=== PATIENT | male | born 1985 | race Caucasian/White ===

== ENCOUNTER 2018-06-27 21:39 | Emergency (ER) | payer MEDICAID, OTHER ==
[2018-06-27 21:50] VITALS: BP 165/82
--- NOTE | 2018-06-27 22:37 | EDPHY ---
H & P Stated Complaint: RLQ abd pain started 2030 Time Seen by Provider: 06/27/18 22:25 HPI/ROS: Pain at 8:30 a.m., gone 15 min ago right inguinal hernia Chief Complaint: Abdominal pain HPI: 33-year-old male with a known right direct inguinal hernia, scheduled for repair on the of this month. The patient began having severe lower abdominal pain at 8:30 this evening. It was constant but waxing and waning. He became concerned about a complication from his hernia in presented for evaluation. He states that approximately 15 min ago he passed flatus and his pain has since completely resolved. He is currently without complaint. No nausea or vomiting. No fevers or chills. ROS: 10 systems were reviewed and were negative except those elements noted in the HPI. PMH: Direct inguinal hernia Social History: No smoking, no alcohol, no recreational drug use Family History: non-contributory Physical Exam: Gen: Awake, Alert, No Distress HEENT: Nose: no rhinorrhea Eyes: PERRLA, EOMI Mouth: Moist mucosa Neck: Supple, no JVD Chest: nontender, lungs clear to auscultation Heart: S1, S2 normal, no murmur Abd: Soft, non-tender, no guarding Back: no CVA tenderness, no midline tenderness Ext: no edema, non-tender Skin: no rash Neuro: CN II-XII intact, Sensation grossly intact, Strength 5/5 in bilateral upper and lower extremities - Personal History Current Tetanus/Diphtheria Vaccine: No Current Tetanus Diphtheria and Acellular Pertussis (TDAP): No - Medical/Surgical History Hx Asthma: No Hx Chronic Respiratory Disease: No Hx Diabetes: No Hx Cardiac Disease: No Hx Renal Disease: No Hx Cirrhosis: No Hx Alcoholism: No Hx HIV/AIDS: No Hx Splenectomy or Spleen Trauma: No Other PMH: denies - Social History Smoking Status: Current every day smoker Constitutional: Initial Vital Signs Temperature (C) 36.9 C 06/27/18 21:48 Heart Rate 87 06/27/18 21:48 Respiratory Rate 16 06/27/18 21:48 Blood Pressure 165/82 H 06/27/18 21:48 O2 Sat (%) 94 06/27/18 21:48 O2 Delivery Mode Room Air Allergies/Adverse Reactions: No Known Allergies Allergy (Unverified 06/27/18 21:50) Home Medications: Medication Instructions Recorded Chantix 06/27/18 Medical Decision Making ED Course/Re-evaluation: A 33-year-old male with a known inguinal hernia presenting with severe abdominal pain. Completely resolved after he passed flatus. He has a completely soft benign abdomen at this time. We have discussed the further evaluation at length. Patient is declining any further evaluation I think that this is appropriate. He will return for any concerns. He will otherwise follow up with his surgeon as scheduled. Departure - Departure Disposition: Home, Routine, Self-Care Clinical Impression: Abdominal pain Condition: Good Instructions: Acute Abdominal Pain (ED) Additional Instructions: Follow up with your surgeon as scheduled for your planned hernia repair. Return to the emergency department for worsening abdominal pain, fevers or chills, uncontrolled nausea vomiting, or any other concerns. Referrals: Hosea Clarke MD [Primary Care Provider] - As per Instructions
== END 2018-06-27 23:27 | disposition home or self-care (01) ==
DX: K40.90 Unilateral inguinal hernia, without obstruction or gangrene, not specified as recurrent (principal)

== ENCOUNTER 2018-07-07 08:29 | Day surgery (SDC) | payer MEDICAID, OTHER ==
[2018-07-07] MEDS ORDERED: ceFAZolin 2 GM/DEXTROSE 100 ML IV ONE (08:39)
[2018-07-07] MEDS ORDERED: LIDOCAINE 1% 2 ML INJ ID PRN (08:40)
[2018-07-07] MEDS ORDERED: LR 1,000 ML IV ONE ×2 (08:40→08:49)
[2018-07-07] MEDS ORDERED: MIDAZOLAM 2 MG/2 ML VIAL IVP ONE (10:01)
--- NOTE | 2018-07-07 10:01 | PDANEPAE ---
ANE History of Present Illness B laparoscopic IH ANE Past Medical History - Cardiovascular History Hx Hypertension: No Hx Arrhythmias: No Hx Chest Pain: No Hx Coronary Artery / Peripheral Vascular Disease: No Hx CHF / Valvular Disease: No Hx Palpitations: No - Pulmonary History Hx COPD: No Hx Asthma/Reactive Airway Disease: No Hx Recent Upper Respiratory Infection: No Hx Oxygen in Use at Home: No Hx Sleep Apnea: No Sleep Apnea Screening Result - Last Documented: Negative - Neurologic History Hx Cerebrovascular Accident: No Hx Seizures: No Hx Dementia: No - Endocrine History Hx Diabetes: No - Renal History Hx Renal Disorders: No Renal History Comment: HX OF HYDROCELE 05/2018 - Liver History Hx Hepatic Disorders: No - Neurological & Psychiatric Hx Hx Neurological and Psychiatric Disorders: No Neurological / Psychiatric History Comment: ADD - Cancer History Hx Cancer: No - Congenital Disorder History Hx Congenital Disorders: No - GI History Hx Gastrointestinal Disorders: No - Other Health History Other Health History: WEARS GLASSES - Chronic Pain History Chronic Pain: No - Surgical History Prior Surgeries: N/A ANE Review of Systems Review of systems is: negative Review of Systems: - Exercise capacity METS (RN): 4 METS ANE Patient History - Allergies Allergies/Adverse Reactions: morphine Allergy (Intermediate, Verified 07/07/18 09:18) Rash - Home Medications Home medications: home medication list seen and reviewed Home Medications: NK [No Known Home Meds] 07/03/18 [Last Taken Unknown] - NPO status NPO Since - Liquids (Date): 07/06/18 NPO Since - Solids (Date): 07/06/18 - Anes Hx Anes Hx: no prior problems - Smoking Hx Smoking Status: Current some day smoker - Family Anes Hx Family Anes Hx: none Family Hx Anesthesia Complications: NONE ANE Labs/Vital Signs - Vital Signs Vital Signs: reviewed preoperatively; see RN documention for details Blood Pressure: 142/96 Heart Rate: 87 Respiratory Rate: 16 O2 Sat (%): 93 Height: 187.96 cm Weight: 131.542 kg ANE Physical Exam - Airway Neck exam: FROM Mallampati Score: Class 2 Mouth exam: normal dental/mouth exam - Pulmonary Pulmonary: no respiratory distress - Cardiovascular Cardiovascular: regular rate and rhythym - ASA Status ASA Status: II ANE Anesthesia Plan Anesthesia Plan: general endotracheal anesthesia
--- NOTE | 2018-07-07 11:15 | PDHPUP ---
History & Physical Update H&P update statement: This history and physical update is based on an assessment of the patient which was completed after admission or registration (within 24 hours), but prior to the surgery/procedure. H&P update: H&P reviewed & patient examined, no change in patient's condition since H&P completed
[2018-07-07] MEDS ORDERED: SUGAMMADEX SODIUM 200 MG/2 ML VIAL IVP ONE (11:41)
[2018-07-07] MEDS ORDERED: MIDAZOLAM 2 MG/2 ML VIAL ONE (11:41)
[2018-07-07] MEDS ORDERED: PROPOFOL 200 MG/20 ML VIAL ONE (11:41)
[2018-07-07] MEDS ORDERED: ROCURONIUM 50 MG/5 ML VIAL ONE ×2 (11:41→12:49)
[2018-07-07] MEDS ORDERED: ONDANSETRON 4 MG/2 ML VIAL ONE (11:41)
[2018-07-07] MEDS ORDERED: fentaNYL 250 MCG/5 ML INJ ONE (11:41)
[2018-07-07] MEDS ORDERED: LIDOCAINE 2% 100 MG/5 ML SYR ONE (11:41)
[2018-07-07] MEDS ORDERED: BUPIVACAINE 0.5% 30 ML SDV ONE (11:41)
[2018-07-07] MEDS ORDERED: DEXAMETHASONE 4 MG/ML VIAL ONE (11:41)
[2018-07-07] MEDS ORDERED: ACETAMINOPHEN 500 MG TAB PO PRN (12:21)
[2018-07-07] MEDS ORDERED: DEXAMETHASONE 4 MG/ML VIAL IVP PRN (12:21)
[2018-07-07] MEDS ORDERED: fentaNYL 100 MCG/2 ML INJ IVP PRN (12:21)
[2018-07-07] MEDS ORDERED: HYDROCODONE/APAP 5/325 TAB PO PRN (12:21)
[2018-07-07] MEDS ORDERED: PROMETHAZINE HCL 25 MG/ML INJ IVP PRN (12:21)
[2018-07-07] MEDS ORDERED: ONDANSETRON 4 MG/2 ML VIAL IVP PRN (12:21)
[2018-07-07] MEDS ORDERED: ALBUTEROL 3 ML DEYVIAL IH PRN (12:21)
[2018-07-07] MEDS ORDERED: NALOXONE HCL 0.4 MG/ML INJ IVP PRN (12:21)
[2018-07-07] MEDS ORDERED: MEPERIDINE 25 MG/0.5 ML AMP IVP PRN (12:21)
[2018-07-07] MEDS ORDERED: HYDROmorphONE/DILAUDID 2 MG/ML INJ IVP PRN (12:21)
--- NOTE | 2018-07-07 12:43 | POSTANESTH ---
Post Anesthetic Evaluation Cardiovascular Status: Normal, Stable, Similar to Pre-Op Cond Respiratory Status: Similar to Pre-op Cond. Level of Consciousness/Mental Status: Can Participate in Eval, Mildly Sleepy, Arousable Pain Control: Inadeq, Add Tx Required Nausea/Vomiting Control: Adequate, Prn Tx Ordered Complications Possibly Related to Anesthesia: None Noted
[2018-07-07] MEDS ORDERED: fentaNYL 100 MCG/2 ML INJ ONE (13:18)
--- NOTE | 2018-07-07 13:44 | POSTOPPROG ---
Post Op Note Date of Operation: 07/07/18 Surgeon: Abel Denise Anesthesiologist: Dr. Poon Anesthesia: GET(General Endotracheal) Pre-op Diagnosis: BIH Post-op Diagnosis: BIH Procedure: Lap BIHR Inf/Abcess present in the surg proc area at time of surgery?: No EBL: Minimal
[2018-07-07] MEDS ORDERED: oxyCODONE IR 5 MG TAB ONE ×2 (14:22→15:11)
[2018-07-07] MEDS: oxyCODONE IR 5 MG TAB PO PRN ×2 (14:26→15:14)
[2018-07-07 15:06] VITALS: BP 113/71
--- NOTE | 2018-07-08 05:02 | GOP ---
DATE OF OPERATION: 07/07/2018 SURGEON: Davidson Denise MD ANESTHESIA: General endotracheal. ANESTHESIOLOGIST: Denver Poon MD PREOPERATIVE DIAGNOSIS: Right inguinal hernia. POSTOPERATIVE DIAGNOSIS: Bilateral inguinal hernias. PROCEDURE PERFORMED: Laparoscopic totally extraperitoneal bilateral inguinal hernia repair. FINDINGS: The patient had a large indirect hernia on the right. He had a small indirect with a lipo ma on the left. ESTIMATED BLOOD LOSS: 30 cc. INDICATIONS: A 33-year-old male with a history of right groin bulge. Risks and benefits of the proc edure were discussed with the patient and his family, their questions were answered, and they wished to proceed. DESCRIPTION OF PROCEDURE: The patient was placed in the supine position. After the induction of jasmine quate general endotracheal anesthesia, the patient was prepped and draped in the sterile surgical fas hion. Marcaine 0.5% was injected in the infra-umbilical area and a transverse incision was made, abel roximately 10 mm in length. This was carried down to the subcutaneous tissue with blunt dissection. The anterior fascia was exposed and incised just lateral to the midline. The preperitoneal space wa s then created bluntly, and the balloon dissector introduced. Once this was appropriately positioned , it was inflated under direct vision using the laparoscope. Once adequate dissection had been obtai anthony, the balloon was deflated and withdrawn. The balloon stabilizer was then placed into the same pr eperitoneal plane. The balloon stabilizer was then inflated. The preperitoneal space was then insufflated with carbon dioxide. Two more trocars were placed, both in the midline in the supraumbilical and mid lower abdomen sites. These were both placed under dire ct vision after injecting 0.5% Marcaine for local anesthesia. Blunt dissection was used to expose Hesselbach's triangle. Abraham's ligament was then exposed and th e femoral space explored. Next the space of Bogros was cleared laterally. The cord structures were seen and preserved, and the preperitoneal fat was retracted in a [id number] fashion. The hernia sac was then retracted in a similar fashion. A shaped mesh was then introduced through th e 11-mm trocar and oriented appropriately. It was positioned to ensure coverage of the direct, indir ect, and femoral spaces. The peritoneum and preperitoneal fat were placed over the bottom edge of th e mesh to ensure placement. The carbon dioxide was then allowed to escape and the mesh observed to e nsure positioning. All trocars were then removed under direct vision. Good hemostasis was noted. The fascia at the 11-mm trocar site was closed with 0 Vicryl in an interrupted fashion. The wounds w ere thoroughly irrigated, and the skin was closed with 5-0 Monocryl in a subcuticular stitch. The wo unds were sterilely dressed. The patient was extubated and taken to the post-anesthesia care unit in stable condition. Addendum: Due to the large size of the hernia, the meshes were tacked in place using the absorbable tacker. Tacks were placed in Abraham ligament and above the iliopubic tract as defined by palpation. The epigastrics were carefully avoided. Due to the large size of the hernia, the area was thoroughl y suctioned. Good hemostasis was noted throughout. A rent in the peritoneum on the right side was t acked with the absorbable tacker. COMPLICATIONS: None. DRAINS: None. /[id number]/MODL
== END 2018-07-07 15:45 | disposition home or self-care (01) ==
LOC: FSGY 08:29
PROVIDERS: ATTEND Surgery
PROC: 0YUA4JZ Supplement Bilateral Inguinal Region with Synthetic Substitute, Percutaneous Endoscopic Approach (ICD-10-PCS; principal; 2018-07-07 13:45)
DX: K40.20 Bilateral inguinal hernia, without obstruction or gangrene, not specified as recurrent (principal)
CPT/HCPCS: C1727; C1781; J0690; J1100; J2001; J2250; J2405; J2704; J3010